=== PATIENT | male | born 1950 | race Caucasian/White ===

== ENCOUNTER 2017-11-29 19:41 | Inpatient (IN) | payer MEDICARE, OTHER, SELFPAY ==
[~2017-11-29] VITALS: Ht 177.8 cm; Wt 67.0 kg
[2017-11-29] MEDS ORDERED: SODIUM CHLORIDE FLUSH 10ML SYR IVF ONE (20:00)
[2017-11-29 20:21] LABS: BASOPHILS # (AUTO) 0.04 x10^3/uL (0-0.1); BASOPHILS % (AUTO) 1 % (0-1); EOSINOPHILS # (AUTO) 0.15 x10^3/uL (0-0.4); EOSINOPHILS % (AUTO) 2 % (1-7); LYMPHOCYTES # (AUTO) 2.77 x10^3/uL (1-3.4); LYMPHOCYTES % (AUTO) 32 % (22-44); MD NO; MEAN CORPUSCULAR HEMOGLOBIN 33.7 pg (27.5-34.5); MEAN CORPUSCULAR HGB CONC 34.3 g/dL (33.2-36.2); MEAN CORPUSCULAR VOLUME 98.2 fL (81-97); MEAN PLATELET VOLUME 7.5 fL (7.4-10.4); MONOCYTES # (AUTO) 0.83 x10^3/uL (0.2-0.8); MONOCYTES % (AUTO) 10 % (2-9); NEUTROPHILS # (AUTO) 4.87 x10^3/uL (1.8-6.8); NEUTROPHILS % (AUTO) 56 % (42-75); PLATELET COUNT 162 x10^3/uL (130-400)
[2017-11-29 20:32] LABS: INTERNATIONAL NORMALIZED RATIO 0.98 (0.93-1.1); PROTHROMBIN TIME 10.2 Seconds (9.6-11.5)
[2017-11-29 20:33] LABS: ALANINE AMINOTRANSFERASE 26 U/L (12-78); ALBUMIN 3.5 g/dL (3.4-5.0); CALCIUM 8.6 mg/dL (8.5-10.1); CHLORIDE 98 mmol/L (98-107); CREATININE 0.84 mg/dL (0.7-1.3)
[2017-11-29 20:37] LABS: ALKALINE PHOSPHATASE 79 U/L (45-117); BILIRUBIN,TOTAL 0.8 mg/dL (0.2-1.0); TOTAL PROTEIN 7.5 g/dL (6.4-8.2); TROPONIN I < 0.015 ng/mL (0.000-0.045)
[2017-11-29 20:56] LABS: ANION GAP 7 mmol/L (5-15)
[2017-11-29] MEDS ORDERED: SODIUM CHLORIDE 0.9% 1,000 ML IV SCH (21:26)
[2017-11-29] MEDS ORDERED: LABETALOL 5MG/ML, 20ML IVPush PRN (21:30)
[2017-11-29] MEDS ORDERED: LORazepam 2 MG/ML, 1ML IVPush PRN (22:00)
[2017-11-29] MEDS ORDERED: PLEASE ENTER ALLERGIES MC SCH (22:30)
[2017-11-29] MEDS ORDERED: OMNIPAQUE 350 MG/ML, 100ML BOTTLE ONE (22:39)
[2017-11-29 22:46] VITALS: BP 145/94
[2017-11-29 22:54] LABS: TROPONIN I < 0.015 ng/mL (0.000-0.045)
[2017-11-29 23:22] LABS: HEMOGLOBIN A1C 5.2 % (4.2-6.3)
[2017-11-29] MEDS ORDERED: ENOXAPARIN 30 MG/0.3 ML ONE (23:23)
[2017-11-29] MEDS: ENOXAPARIN 30 MG/0.3 ML SQ SCH (23:25)
[2017-11-30] VITALS (9 sets, daily range): BP systolic 94–122; BP diastolic 65–84
[2017-11-30 01:52] LABS: AMPHETAMINE SCREEN, URINE Positive (Negative); BARBITURATE SCREEN, URINE Negative (Negative); BENZODIAZEPINE SCREEN, URINE Negative (Negative); CANNABINOID SCREEN, URINE Negative (Negative); COCAINE SCREEN, URINE Negative (Negative); METHADONE SCREEN, URINE Negative (Negative); OPIATE SCREEN, URINE Negative (Negative)
[2017-11-30 03:59] LABS: ANION GAP 6 mmol/L (5-15); CALCIUM 8.1 mg/dL (8.5-10.1); CHLORIDE 100 mmol/L (98-107); CREATININE 0.81 mg/dL (0.7-1.3)
[2017-11-30 04:02] LABS: TROPONIN I < 0.015 ng/mL (0.000-0.045)
[2017-11-30] MEDS ORDERED: POTASSIUM CHLORIDE 20 MEQ TAB.ER.PRT PO ONE ×2 (07:30→11:30)
[2017-11-30] MEDS ORDERED: MAGNESIUM SULFATE PMX 2GM/50ML 50 ML IV ONE ×2 (07:30)
[2017-11-30] MEDS: ENOXAPARIN 30 MG/0.3 ML SQ SCH ×2 (09:33→20:50)
[2017-11-30 11:28] LABS: MICROSCOPIC NOT IND
[2017-11-30 11:30] LABS: CULTURE INDICATED? NO
[2017-11-30] MEDS: SODIUM CHLORIDE 0.9% 1,000 ML IV SCH (11:48)
[2017-11-30] MEDS: POTASSIUM CHLORIDE 20 MEQ, MAGNESIUM SULFATE 1 GM, FOLIC ACID 1 MG, THIAMINE 200 MG, MV... IV SCH (12:32)
[2017-11-30] MEDS ORDERED: CHLORDIAZEPOXIDE 25 MG CAPSULE PO PRN (20:00)
[2017-11-30] MEDS ORDERED: LORazepam 2 MG/ML, 1ML IVPush PRN ×3 (20:00)
[2017-12-01 03:03] VITALS: BP 95/66
[2017-12-01 03:04] VITALS: BP_SYST 117; BP_SYST 126; BP_DIAS 68; BP_DIAS 88
[2017-12-01] MEDS: SODIUM CHLORIDE 0.9% 1,000 ML IV SCH ×3 (05:02→22:00)
[2017-12-01 06:02] LABS: CHLORIDE 103 mmol/L (98-107)
[2017-12-01 06:10] LABS: ALANINE AMINOTRANSFERASE 21 U/L (12-78); ALBUMIN 2.8 g/dL (3.4-5.0); ALKALINE PHOSPHATASE 76 U/L (45-117); ANION GAP 10 mmol/L (5-15); BILIRUBIN,TOTAL 0.7 mg/dL (0.2-1.0); CALCIUM 7.8 mg/dL (8.5-10.1); CREATININE 0.82 mg/dL (0.7-1.3); TOTAL PROTEIN 6.4 g/dL (6.4-8.2)
[2017-12-01 07:47] LABS: BASOPHILS # (AUTO) 0.04 x10^3/uL (0-0.1); BASOPHILS % (AUTO) 1 % (0-1); EOSINOPHILS # (AUTO) 0.15 x10^3/uL (0-0.4); EOSINOPHILS % (AUTO) 2 % (1-7); LYMPHOCYTES # (AUTO) 2.29 x10^3/uL (1-3.4); LYMPHOCYTES % (AUTO) 35 % (22-44); MD NO; MEAN CORPUSCULAR HEMOGLOBIN 33.1 pg (27.5-34.5); MEAN CORPUSCULAR HGB CONC 33.2 g/dL (33.2-36.2); MEAN CORPUSCULAR VOLUME 99.5 fL (81-97); MEAN PLATELET VOLUME 8.2 fL (7.4-10.4); MONOCYTES # (AUTO) 0.94 x10^3/uL (0.2-0.8); MONOCYTES % (AUTO) 14 % (2-9); NEUTROPHILS # (AUTO) 3.16 x10^3/uL (1.8-6.8); NEUTROPHILS % (AUTO) 48 % (42-75); PLATELET COUNT 128 x10^3/uL (130-400); RED BLOOD COUNT 3.25 x10^6/uL (4.38-5.82); RED CELL DISTRIBUTION WIDTH 18.4 % (9.4-14.8)
[2017-12-01] MEDS ORDERED: LORazepam 1MG TABLET PO PRN ×4 (08:30)
[2017-12-01] MEDS ORDERED: LORazepam 2 MG/ML, 1ML IV PRN ×5 (08:30)
[2017-12-01] MEDS ORDERED: LORazepam 0.5MG TABLET PO PRN (08:30)
[2017-12-01 09:30] VITALS: BP 118/62
[2017-12-01] MEDS: ENOXAPARIN 30 MG/0.3 ML SQ SCH ×2 (09:30→20:17)
[2017-12-01 09:50] LABS: FREE T4 (FREE THYROXINE) 0.94 ng/dL (0.76-1.46); THYROID STIMULATING HORMONE 1.95 mIU/L (0.358-3.740)
[2017-12-01] MEDS: POTASSIUM CHLORIDE 20 MEQ, MAGNESIUM SULFATE 1 GM, FOLIC ACID 1 MG, THIAMINE 200 MG, MV... IV SCH (10:53)
[2017-12-01 13:59] VITALS: BP 132/87
[2017-12-01] MEDS: ACETAMINOPHEN 325 MG TABLET PO PRN ×2 (15:04→20:17)
[2017-12-01 16:30] VITALS: BP_SYST 101; BP_SYST 104; BP_SYST 125; BP_DIAS 73; BP_DIAS 77; BP_DIAS 80
[2017-12-01] MEDS ORDERED: COSYNTROPIN 0.25 MG IM ONE (17:30)
[2017-12-01 17:44] LABS: BASOPHILS # (AUTO) 0.03 x10^3/uL (0-0.1); BASOPHILS % (AUTO) 1 % (0-1); EOSINOPHILS # (AUTO) 0.11 x10^3/uL (0-0.4); EOSINOPHILS % (AUTO) 2 % (1-7); LYMPHOCYTES # (AUTO) 2.15 x10^3/uL (1-3.4); LYMPHOCYTES % (AUTO) 33 % (22-44); MD NO; MEAN CORPUSCULAR HEMOGLOBIN 34.2 pg (27.5-34.5); MEAN CORPUSCULAR HGB CONC 34.4 g/dL (33.2-36.2); MEAN CORPUSCULAR VOLUME 99.4 fL (81-97); MEAN PLATELET VOLUME 8.1 fL (7.4-10.4); MONOCYTES % (AUTO) 12 % (2-9); NEUTROPHILS # (AUTO) 3.47 x10^3/uL (1.8-6.8); NEUTROPHILS % (AUTO) 53 % (42-75); PLATELET COUNT 131 x10^3/uL (130-400); RED BLOOD COUNT 3.09 x10^6/uL (4.38-5.82); RED CELL DISTRIBUTION WIDTH 18.6 % (9.4-14.8)
[2017-12-01 17:48] LABS: ALANINE AMINOTRANSFERASE 22 U/L (12-78); ALBUMIN 3.1 g/dL (3.4-5.0); ANION GAP 7 mmol/L (5-15); CALCIUM 8.2 mg/dL (8.5-10.1); CHLORIDE 100 mmol/L (98-107); CREATININE 0.98 mg/dL (0.7-1.3)
[2017-12-01 17:51] LABS: ALKALINE PHOSPHATASE 93 U/L (45-117); BILIRUBIN,TOTAL 0.6 mg/dL (0.2-1.0); TOTAL PROTEIN 6.7 g/dL (6.4-8.2)
[2017-12-01] MEDS ORDERED: ASPI-621 PO (17:57)
[2017-12-01] MEDS ORDERED: MAGN400T7 PO (17:57)
[2017-12-01] MEDS ORDERED: METO25TA35 PO (17:57)
[2017-12-01 19:36] VITALS: BP_SYST 110; BP_SYST 113; BP_SYST 128; BP_DIAS 69; BP_DIAS 80
[2017-12-02 01:29] VITALS: BP_SYST 114; BP_SYST 123; BP_DIAS 71; BP_DIAS 73; BP_DIAS 78
[2017-12-02] MEDS ORDERED: SODIUM CHLORIDE 0.45%, 1,000ML IVBOLUS SCH (07:30)
[2017-12-02 07:42] VITALS: BP_SYST 135; BP_SYST 137; BP_SYST 140; BP_DIAS 83; BP_DIAS 86; BP_DIAS 94
[2017-12-02] MEDS ORDERED: THIAMINE 100MG TABLET PO SCH (09:00)
[2017-12-02] MEDS ORDERED: FOLIC ACID 1 MG TABLET PO SCH (09:00)
[2017-12-02] MEDS: ENOXAPARIN 30 MG/0.3 ML SQ SCH (09:35)
[2017-12-02] MEDS: POTASSIUM CHLORIDE 20 MEQ, MAGNESIUM SULFATE 1 GM, FOLIC ACID 1 MG, THIAMINE 200 MG, MV... IV SCH (10:30)
[2017-12-02] MEDS ORDERED: SODIUM POLYSTYRENE SULFONATE ORAL SUSP PO ONE (11:30)
[2017-12-02] MEDS ORDERED: FUROSEMIDE 20 MG/2 ML IV ONE (11:30)
[2017-12-02 13:36] LABS: ANION GAP 10 mmol/L (5-15); CALCIUM 8.9 mg/dL (8.5-10.1); CHLORIDE 99 mmol/L (98-107)
[2017-12-02 14:32] VITALS: BP 136/77
[2017-12-02] MEDS ORDERED: THIA100T67 PO (15:03)
[2017-12-02] MEDS ORDERED: PRED10TA PO (15:04)
== END 2017-12-02 16:19 | disposition home or self-care (01) | DRG 73 ==
LOC: ED 21:53 → 5SO 22:11 → INTOOBSV 22:11 → OBSVTOIN 22:11
PROVIDERS: ADMIT Family Medicine; ATTEND Family Medicine
DX: G90.8 Other disorders of autonomic nervous system (principal); E43 Unspecified severe protein-calorie malnutrition; E11.9 Type 2 diabetes mellitus without complications; J44.9 Chronic obstructive pulmonary disease, unspecified; F15.10 Other stimulant abuse, uncomplicated; F12.90 Cannabis use, unspecified, uncomplicated; E83.42 Hypomagnesemia; E87.6 Hypokalemia; M51.36 Other intervertebral disc degeneration, lumbar region; K44.9 Diaphragmatic hernia without obstruction or gangrene; F10.10 Alcohol abuse, uncomplicated; G40.909 Epilepsy, unspecified, not intractable, without status epilepticus; Y90.9 Presence of alcohol in blood, level not specified; I10 Essential (primary) hypertension; D64.9 Anemia, unspecified; R74.0 Nonspecific elevation of levels of transaminase and lactic acid dehydrogenase [LDH]; Z87.891 Personal history of nicotine dependence; Z83.3 Family history of diabetes mellitus; Z71.51 Drug abuse counseling and surveillance of drug abuser; Z79.899 Other long term (current) drug therapy
CPT/HCPCS: 36415; 70450; 71045; 71275; 74177; 80048; 80053; 80307; 81003; 82533; 83036; 83735; 83880; 84100; 84439; 84443; 84484; 85025; 85610; 85730; 93005; 93306; 93880; 95819; 99285; G0378; J1650; J3411; J3475; J3480; J7042; Q9967; J0834; J1940; J2060; J7030

== ENCOUNTER 2017-12-24 14:33 | Emergency (ER) | payer MEDICARE ==
[~2017-12-24] VITALS: Ht 177.8 cm; Wt 58.0 kg
[~2017-12-24 14:33] MED LIST: ASPI-621 PO; MAGN400T7 PO; METO25TA35 PO; PRED10TA PO; THIA100T67 PO
[2017-12-24 15:24] LABS: BASOPHILS # (AUTO) 0.04 x10^3/uL (0-0.1); BASOPHILS % (AUTO) 0 % (0-1); EOSINOPHILS # (AUTO) 0.03 x10^3/uL (0-0.4); EOSINOPHILS % (AUTO) 0 % (1-7); LYMPHOCYTES # (AUTO) 1.45 x10^3/uL (1-3.4); LYMPHOCYTES % (AUTO) 15 % (22-44); MD NO; MEAN CORPUSCULAR HEMOGLOBIN 32.7 pg (27.5-34.5); MEAN CORPUSCULAR HGB CONC 33.8 g/dL (33.2-36.2); MEAN CORPUSCULAR VOLUME 96.8 fL (81-97); MEAN PLATELET VOLUME 8.2 fL (7.4-10.4); MONOCYTES # (AUTO) 0.52 x10^3/uL (0.2-0.8); MONOCYTES % (AUTO) 5 % (2-9); NEUTROPHILS # (AUTO) 7.87 x10^3/uL (1.8-6.8); NEUTROPHILS % (AUTO) 79 % (42-75); PLATELET COUNT 194 x10^3/uL (130-400); RED BLOOD COUNT 3.77 x10^6/uL (4.38-5.82); RED CELL DISTRIBUTION WIDTH 16.6 % (9.4-14.8)
[2017-12-24 15:33] LABS: ALBUMIN 3.8 g/dL (3.4-5.0); ANION GAP 10 mmol/L (5-15); CALCIUM 8.9 mg/dL (8.5-10.1); CHLORIDE 98 mmol/L (98-107); CREATININE 0.82 mg/dL (0.7-1.3)
[2017-12-24] MEDS ORDERED: VALP250C59 PO (15:59)
[2017-12-24] MEDS ORDERED: DIVALPROEX 500 MG TAB.ER.24H PO ONE (16:00)
[2017-12-24 16:30] VITALS: BP 125/82
== END 2017-12-24 16:36 | disposition home or self-care (01) ==
LOC: ED 16:30
DX: G40.309 Generalized idiopathic epilepsy and epileptic syndromes, not intractable, without status epilepticus (principal)
CPT/HCPCS: 36415; 80048; 82040; 85025; 93005; 99285

== ENCOUNTER 2018-10-23 15:47 | Emergency (ER) | payer MEDICARE ==
[~2018-10-23] VITALS: Ht 175.3 cm; Wt 56.0 kg
[~2018-10-23 15:47] MED LIST changes: +AMOX1TAB12 PO; -ASPI-621 PO; +ASPI81TA45 PO; +CARV3.1212 PO; +FOLI-17 PO; +MULT1TAB60 PO; +SODI1TAB PO; +VALP250C59 PO
--- NOTE | 2018-10-23 16:05 | NUR ---
ER PROVIDER IN TO EVAL PT.
[2018-10-23 17:17] LABS: BASOPHILS # (AUTO) 0.04 x10^3/uL (0-0.1); BASOPHILS % (AUTO) 1 % (0-1); EOSINOPHILS # (AUTO) 0.04 x10^3/uL (0-0.4); EOSINOPHILS % (AUTO) 1 % (1-7); LYMPHOCYTES # (AUTO) 1.03 x10^3/uL (1-3.4); LYMPHOCYTES % (AUTO) 11 % (22-44); MD NO; MEAN CORPUSCULAR HEMOGLOBIN 31.4 pg (27.5-34.5); MEAN CORPUSCULAR HGB CONC 32.6 g/dL (33.2-36.2); MEAN CORPUSCULAR VOLUME 96.3 fL (81-97); MEAN PLATELET VOLUME 7.7 fL (7.4-10.4); MONOCYTES # (AUTO) 0.75 x10^3/uL (0.2-0.8); MONOCYTES % (AUTO) 8 % (2-9); NEUTROPHILS # (AUTO) 7.16 x10^3/uL (1.8-6.8); NEUTROPHILS % (AUTO) 79 % (42-75); PLATELET COUNT 254 x10^3/uL (130-400); RED BLOOD COUNT 3.99 x10^6/uL (4.38-5.82); RED CELL DISTRIBUTION WIDTH 15.9 % (9.4-14.8)
[2018-10-23 17:25] LABS: ALBUMIN 3.4 g/dL (3.4-5.0); ANION GAP 9 mmol/L (5-15); CALCIUM 9.3 mg/dL (8.5-10.1); CHLORIDE 104 mmol/L (98-107)
--- NOTE | 2018-10-23 17:28 | NUR ---
PT RESTING ON TANI, VSS, NAD NOTED
[2018-10-23 17:29] LABS: ALANINE AMINOTRANSFERASE 18 U/L (12-78); ALKALINE PHOSPHATASE 88 U/L (45-117); BILIRUBIN,TOTAL 0.3 mg/dL (0.2-1.0); TOTAL PROTEIN 8.4 g/dL (6.4-8.2)
[2018-10-23] MEDS ORDERED: OMNIPAQUE 350 MG/ML, 100ML BOTTLE ONE (18:12)
--- NOTE | 2018-10-23 18:27 | NUR ---
PT BACK FROM CT, RESULTS PENDING. NAD
--- NOTE | 2018-10-23 19:32 | NUR ---
UA COLLECTED. CALL LIGHT IN REACH. NO DISTRESS. A/O NOW APPROPRIATE.
--- NOTE | 2018-10-23 20:02 | NUR ---
MAINTAINING 92 % ON R/A WITH A FAIR PLETH.
[2018-10-23 20:03] VITALS: BP 150/91
[2018-10-23 20:05] LABS: MICROSCOPIC NOT IND
--- NOTE | 2018-10-23 20:42 | NUR ---
TOLERATING PO INTAKE. ATE PUDDING AND TOOK IN ONE APPLE JUICE.
--- NOTE | 2018-10-23 21:38 | NUR ---
AT 2041 THE PT TOOK IN PO FLUIDS SAT UP ON THE BED. ATE A CUP OF PUDDING. NOW THE PT WILL NOT OPEN HIS EYES TO VERBAL STIMULATION. THE PT WILL RESPOND TO STERNAL STIMULATION. PA UPDATED.
== END 2018-10-23 22:35 | disposition home or self-care (01) ==
LOC: ED 17:56
DX: S20.211A Contusion of right front wall of thorax, initial encounter (principal); Z72.9 Problem related to lifestyle, unspecified; R42 Dizziness and giddiness; R41.0 Disorientation, unspecified; X58.XXXA Exposure to other specified factors, initial encounter; Y93.89 Activity, other specified; Y92.89 Other specified places as the place of occurrence of the external cause; Y99.8 Other external cause status
CPT/HCPCS: 36415; 70450; 71260; 73030; 74177; 80053; 80307; 81003; 85025; 99284; Q9967